=== PATIENT | male | born 2000 | race Caucasian/White ===

== ENCOUNTER 2023-10-20 22:52 | Emergency (ER) | payer BC ==
[2023-10-20 22:57] VITALS: RESP 18; TEMP 97.7
--- NOTE | 2023-10-20 23:20 | ED ---
Eye Problem HPI - General Chief complaint: Eye Problems Stated complaint: Eye Pain Time Seen by Provider: 10/20/23 23:05 Source: patient, RN notes reviewed Mode of arrival: ambulatory Limitations: no limitations - History of Present Illness Initial comments: 23-year-old male with no significant past medical history presents emergency department chief complaint of bilateral eye pain and photophobia. Patient does work as a service tech/welder and states that when he woke up this morning he began experiencing bilateral eye pain and eye watering and photophobia. Patient has mild pain with extraocular eye movement. He denies wearing contact lenses or previous surgeries to his eyes. Patient denies obvious foreign body or chemicals to the eyes yesterday. He denies headaches, fevers, chills, nausea, vomiting, acute neurological deficits. - Related Data Allergies Allergy/AdvReac Type Severity Reaction Status Date / Time No Known Allergies Allergy Verified 10/20/23 22:57 Review of Systems ROS Statement: Those systems with pertinent positive or pertinent negative responses have been documented in the HPI. ROS Other: All systems not noted in ROS Statement are negative. Past Medical History Past Medical History: No Reported History Past Surgical History: No Surgical Hx Reported Past Psychological History: ADD/ADHD Smoking Status: Current every day smoker Past Alcohol Use History: Occasional Past Drug Use History: Marijuana General Exam Limitations: no limitations General appearance: alert, in no apparent distress Head exam: Present: atraumatic, normocephalic, normal inspection Eye exam: Present: PERRL, EOMI, conjunctival injection Pupils: Present: normal accommodation ENT exam: Present: normal exam, mucous membranes moist Neck exam: Present: normal inspection. Absent: tenderness, meningismus, lymphadenopathy Respiratory exam: Present: normal lung sounds bilaterally. Absent: respiratory distress, wheezes, rales, rhonchi, stridor Cardiovascular Exam: Present: regular rate, normal rhythm, normal heart sounds. Absent: systolic murmur, diastolic murmur, rubs, gallop, clicks GI/Abdominal exam: Present: soft, normal bowel sounds. Absent: distended, tenderness, guarding, rebound, rigid Extremities exam: Present: normal inspection, full ROM, normal capillary refill. Absent: tenderness, pedal edema, joint swelling, calf tenderness Neurological exam: Present: alert, oriented X3, CN II-XII intact Course Vital Signs 10/20/23 22:53 Temperature 97.7 F Pulse Rate 84 Respiratory 18 Rate Blood Pressure 142/92 O2 Sat by Pulse 97 Oximetry Medical Decision Making - Medical Decision Making Was pt. sent in by a medical professional or institution ([facility], DESIGN MANAGER, urgent care, hospital, or penitentiary...) When possible be specific @ -No Did you speak to anyone other than the patient for history (EMS, parent, family, police, friend...)? What history was obtained from this source @ -No Did you review nursing and triage notes (agree or disagree)? Why? @ -I reviewed and agree with nursing and triage notes Were old charts reviewed (outside hosp., previous admission, EMS record, old EKG, old radiological studies, urgent care reports/EKG's, penitentiary records)? Report findings @ -No old charts were reviewed Differential Diagnosis (chest pain, altered mental status, abdominal pain women, abdominal pain men, vaginal bleeding, weakness, fever, dyspnea, syncope, headache, dizziness, GI bleed, back pain, seizure, CVA, palpatations, mental health, musculoskeletal)? @ -Keratitis, corneal abrasion, conjunctivitis, glaucoma, this list is not all inclusive EKG interpreted by me (3pts min.). @ -none X-rays interpreted by me (1pt min.). @ -None done CT interpreted by me (1pt min.). @ -None done U/S interpreted by me (1pt. min.). @ -None done What testing was considered but not performed or refused? (CT, X-rays, U/S, labs)? Why? @ -None What meds were considered but not given or refused? Why? @ -None Did you discuss the management of the patient with other professionals (professionals i.e. [facility], DESIGN MANAGER, lab, RT, psych nurse, social research assistant, block sealer, teacher, upscale security officer, dependency case manager)? Give summary @ -No Was smoking cessation discussed for >3mins.? @ -No Was critical care preformed (if so, how long)? @ -No Were there social determinants of health that impacted care today? How? (Homelessness, low income, unemployed, alcoholism, drug addiction, transportation, low edu. Level, literacy, decrease access to med. care, fdc, rehab)? @ -No Was there de-escalation of care discussed even if they declined (Discuss DNR or withdrawal of care, Hospice)? DNR status @ -No What co-morbidities impacted this encounter? (DM, HTN, Smoking, COPD, CAD, Cancer, CVA, ARF, Chemo, Hep., AIDS, mental health diagnosis, sleep apnea, morbid obesity)? @ -None Was patient admitted / discharged? Hospital course, mention meds given and ro crystal, prescriptions, significant lab abnormalities, going to OR and other pertinent info. @ -discharge. 23-year-old male with bilateral eye photophobia and pain. On examination patient's pupils are equal round and reactive, visual acuity is intact. pressures WNLS bilaterally. Proparacaine drops used bilateral eyes and fluorescein stain used to visualize cornea under Blake lamp visual punctate ke ratitis with small pinpoint areas of increased uptake of the fluorescein stain on the cornea. 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 Patient will be prophylactically treated with ophthalmologic antibiotic drops and instructed to refrain from work for 2 days and symptomatic treatment at home with Tylenol Motrin. Antibiotic drops will be used 2 drops in each eye every 8 hours over the next 5 days. All questions answered at bedside and strict return discussed with the patient he is verbalized understanding. Discussed with Dr. Morillo. Undiagnosed new problem with uncertain prognosis? @ -No Drug Therapy requiring intensive monitoring for toxicity (Heparin, Nitro, Insulin, Cardizem)? @ -No Were any procedures done? @ -No Diagnosis/symptom? @ -Ultraviolet keratitis Acute, or Chronic, or Acute on Chronic? @ -acute Uncomplicated (without systemic symptoms) or Complicated (systemic symptoms)? @ -Uncomplicated Side effects of treatment? @ -No Exacerbation, Progression, or Severe Exacerbation? @ -No Poses a threat to life or bodily function? How? (Chest pain, [place], NH, pneumonia, PE, COPD, DKA, ARF, appy, cholecystitis, CVA, Diverticulitis, Homicidal, Suicidal, threat to staff... and all critical care pts) @ -No Disposition Clinical Impression: Ultraviolet keratitis of both eyes Disposition: HOME SELF-CARE Condition: Good Instructions (If sedation given, give patient instructions): Keratitis (ED) Additional Instructions: Return to the emergency department for any new or worsening symptoms. Continue to use topical antibiotic drops 2 drops in each eye every 6 hours over the next 5 days. Is patient prescribed a controlled substance at d/c from ED?: No Referrals: None,Stated [Primary Care Provider] - 1-2 days Time of Disposition: 23:49
[2023-10-20] MEDS: PROPARACAINE 0.5% OPHTH DROPS 15 ML BTL LEFT EYE STA (23:27)
[2023-10-20] MEDS: PROPARACAINE 0.5% OPHTH DROPS 15 ML BTL RIGHT EYE STA (23:27)
[2023-10-20] MEDS: FLUORESCEIN STRIPS 1 MG STRIP RIGHT EYE ONE (23:27)
[2023-10-21] MEDS: GENTAMICIN 0.3% OPHTH DROPS 5 ML BTL BOTH EYES ONE (00:26)
[2023-10-21 00:33] VITALS: BP 133/82; PULSE 76
== END 2023-10-21 00:29 | disposition home or self-care (01) ==
LOC: EC 22:52
CPT/HCPCS: 99283